=== PATIENT | female | born 1955 | race Caucasian/White ===

== ENCOUNTER 2016-08-10 15:23 | Emergency (ER) | payer OTHER ==
[2016-08-10] MEDS ORDERED: MORPHINE SULFATE 2 MG/1 ML IVP ONE (15:32)
[2016-08-10] MEDS ORDERED: ONDANSETRON 4 MG/2 ML VIAL IVP ONE (15:32)
[2016-08-10] MEDS ORDERED: Sodium Chloride 0.9% 1,000 ML PRIMARY IV ONE (15:32)
--- NOTE | 2016-08-10 15:35 | PDOC ---
Chest Pain HPI - General Chief Complaint: Chest Pain Stated Complaint: CHEST PAIN Date Seen by Provider: 08/10/16 Time Seen by Provider: 15:33 Source: Patient, EMS Exam Limitations: POSITIVE: No limitations Treatment Prior to Arrival: REPORTS: Nitroglycerin, Aspirin Nurse's Notes Reviewed & Considered: Yes EMS Report Reviewed & Considered: Verbal - History of Present Illness Initial Comments: Patient comes in via EMS with chest pain. Approximately 30 minutes prior to presentation here in the emergency department patient developed sharp left sternal chest pain that radiated into her neck and shoulder. In route she received 2 sublingual lungs that reduced her chest pain and additionally gave her 4 baby aspirin. He denies any fever or chills sweats, nausea vomiting or diarrhea, she does have a headache, she has chest pain, shortness of breath. Body Location Affected: REPORTS: Chest Timing: REPORTS: Abrupt, Constant Duration: 1/2 hour Severity: Moderate Context: REPORTS: Rest Quality: REPORTS: "Pain", Sharpness, Stabbing Radiation: REPORTS: Neck (L), Shoulder (L) Associated Symptoms: REPORTS: Shortness of Breath Modifying Factors: improves with: None Reported Similar Symptoms Previously: No Recently seen/treated/hospitalized: No Any Prior Injuries Related to Current Complaint?: No - Patient Home Medications Home Medications: Home Medications Metformin HCl [Metformin Hcl Er] 1 tab PO QD #30 tab 10/31/15 Sertraline HCl 1 tab PO QD #30 tab 10/31/15 Simvastatin 1 tab PO QD #30 tab 10/31/15 Omeprazole 1 cap PO BID #60 cap 04/24/16 Diazepam [Valium] 5 mg PO QHS #10 tab 08/06/16 Ergocalciferol (Vitamin D2) [Vitamin D2] 1 cap PO 2XW #16 cap 08/08/16 - Patient Allergies Allergies/Adverse Reactions: Allergies Allergy/AdvReac Type Severity Reaction Status Date / Time No Known Allergies Allergy Verified 08/10/16 15:42 Past Medical History - heen HEENT History: Denies History Cardiovascular History: Hypertension, Arrhythmia, Hyperlipidemia Respiratory History: Denies History Gastrointestinal History: Denies History Additional Gastrointestinal History: EPIGASTRIC PAIN/ HIDA SCAN DONE ON 03/13 WAS NEGATIVE Genitourinary History: Denies History Endocrine History: Denies History Musculoskeletal History: Back Pain Prosthesis or Implant: No (SCREWS TO LOWER BACK) Neurological History: Denies History Blood Disorders: Other (please comment) Additional Blood Disorders History: JUSTIN [place] SPOTTED FEVER 10 YEARS AGO Psychiatric History: Depression History of Sexually Transmitted Diseases: No Cancer History: Denies History History of MDRO: No History of Other Communicable Diseases: No Alcohol Use: Occasionally Substance Use Type: None Previous Surgical History: Yes Type / Date of Surgery: C SECTION/ COLONOSCOPY/ RIGHT AXILLA BENIGN LUMP REMOVED / TUBAL/ VERTEBRAL FUSION / SPINAL SURGERY FOR SPINAL STENOSIS Anesthesia Reactions: No Malignant Hyperthermia: No Significant Family History: Cancer ROS - Limitations ROS Limitations: No Limitations Constitution: REPORTS: Denies Symptoms Cardiovascular: REPORTS: Chest Pain Respiratory: REPORTS: Shortness Of Breath Neurological: REPORTS: Denies Neuro Symptoms Gastrointestinal: REPORTS: Denies GI Symptoms Endocrine: REPORTS: Denies Symptoms Musculoskeletal: REPORTS: Denies MS Symptoms Genitourinary: REPORTS: Denies Symptoms Eyes: REPORTS: Denies Symptoms ENT: REPORTS: Denies Symptoms Skin: REPORTS: Denies Skin Symptoms Lympathic: REPORTS: Denies Lympathic Symptoms Immunologic: POSITIVE: Denies Symptoms Psychiatric: POSITIVE: Anxiety Chest Pain PE - General Appearance General Appearance: REPORTS: Alert, Cooperative, No Acute Distress, No Evidence of Trauma, Anxious - HEENT HEENT: POSITIVE: Head Inspection Nml, Eyes Inspection Nml, Ears Inspection Nml, Nose Inspection Nml, PERRL, EOMI - Neck Neck: REPORTS: Normal Inspection - Respiratory Respiratory: REPORTS: No Respiratory Distress, Breath Sounds Normal, Chest Non- Tender - Cardiovascular Cardiovascular: REPORTS: Regular Rate and Rhythm, Heart Sounds Normal - Abdomen Abdomen: Soft: (All Quadrants), Normal Bowel Sounds: (All Quadrants), Denies Tenderness: (All Quadrants) - Skin Skin: REPORTS: Intact, Normal For Race, Warm, Dry, No Rash - Extremities Extremity: Non-Tender: (All Extremities), Normal ROM: (All Extremities), Normal Inspection: (All Extremities) - Neurological / Psychological Neurological: POSITIVE: Affect Apporpriate, Oriented X3 Chest Pain Progress - Results Reviewed by me Xrays/CTs/US Reviewed by me: Yes Discussed with Radiologist: Yes Lab Results Reviewed: Yes Lab Results:: Laboratory Results 08/10/16 08/10/16 Range/Units 15:15 17:33 WBC 5.71 (4.8-10.8) 10^3/uL RBC 4.73 (4.20-5.40) 10^6/uL Hgb 14.3 (12.0-16.0) g/dL Hct 43.1 (37.0-47.0) % MCV 91.1 (81-99) FL MCH 30.2 (27-31) PG MCHC 33.2 (33-37) g/dL RDW Std Deviation 42.6 (39-50) fL RDW Coeff of Kelsey 13.1 (11.5-14.5) % Plt Count 191 (140-350) 10*3/uL MPV 11.0 (7.4-12.2) FL D-Dimer < 0.19 (0.00-0.59) mg/L Sodium 137 (135-145) meq/L Potassium 4.2 (3.8-5.2) meq/L Chloride 99 (98-112) meq/L Carbon Dioxide 26 (23-33) meq/L Anion Gap 12 (5-20) BUN 16 (7-22) mg/dL Creatinine 0.6 (0.50-1.20) mg/dL Estimated GFR > 60 (>60 ml/min/1.73m(2)) BUN/Creatinine Ratio 26.66 H (6-20) Glucose 88 (78-110) mg/dL Calculated Osmolality 283.0 (267-292) mOsm/kg Calcium 9.3 (8.7-10.7) mg/dL Magnesium 1.7 (1.6-2.4) mg/dL Total Bilirubin 0.8 (0.3-1.2) mg/dL AST 28 (8-39) IU/L ALT 43 (9-52) IU/L Alkaline Phosphatase 90 (38-126) IU/L Troponin I < 0.012 < 0.012 (< 0.040) ng/mL Total Protein 7.6 (6.1-8.0) g/dL Albumin 4.4 (3.5-4.8) g/dL Globulin 3.2 (2.50-4.10) g/dL Albumin/Globulin Ratio 1.30 (1.3-2.0) mg/g TSH 3.89 (0.2700-4.2000) uIU/mL Free T4 0.82 L (0.93-1.71) ng/dL EKG Interpretation:: POSITIVE: Normal Sinus Rhythm, Abnormal EKG - Patient's Progress Pain Medication Addressed: POSITIVE: Yes Re-Examine Time: 18:03 Status: POSITIVE: Improved MDM / ED Course: Patient brought in via EMS for chest pain. Patient with sharp chest pain radiating to her left neck and shoulder that was relieved with nitroglycerin. She was examined, an IV was established, blood drawn and sent to lab for studies radiological studies were obtained as well as EKG. Findings: EKG per my read shows ST inversion in leads V1 to 3, chest x-ray is unremarkable with no acute cardiopulmonary decompensation. Troponin is normal 2 two hours apart. Assessment: Chest pain with EKG changes with no baseline for comparison, rule out troponins normal. Plan: Keep her appointment for echocardiogram this week. Quality Measure Initiative: CP/AMI: POSITIVE: EKG, ASA Quality Measure Initiative: CAP: POSITIVE: CXR or CT - Consult Counseled: POSITIVE: Patient, Family, RE: Lab Results, RE: Radiology Results, RE : DX, RE: Need for F/U Patient Care Time - Estimated PCT Patient Care Time (In Minutes): 60 Vital Signs - Recent Vital Signs Vital Signs: Vital Signs (Last 8 hours) Pulse 08/10/16 15:33 69 - VS Reviewed Vital Signs Reviewed: Yes Discharge Clinical Impression: Chest pain Discharge Disposition: Discharged to Home Condition: Fair Patient Instructions Given at Discharge: Chest Pain (ED)
--- NOTE | 2016-08-10 15:41 | EKG ---
[address] [place] [address] Measurements Intervals [place] Rate: 69 P: 42 IN: 144 QRS: 27 QRSD: 80 T: 17 QT: 420 QTc: 440 Interpretive Statements SINUS RHYTHM [address] DEVIATION AND MODERATE T-WAVE ABNORMALITY, CONSIDER ANTEROLATERAL ISCHEMIA [-0.1+ mV T WAVE IN V3-V6] Compared to ECG 08/06/2016 15:57:10 No significant changes Electronically Signed On 08-11-16 09:09:42 MST by Donovan Belcher MD [email or web address]
[2016-08-10 15:43] LABS: HEMATOCRIT 43.1 % (37.0-47.0); HEMOGLOBIN 14.3 g/dL (12.0-16.0); MEAN CORPUSCULAR HEMOGLOBIN 30.2 PG (27-31); MEAN CORPUSCULAR HGB CONC 33.2 g/dL (33-37); RDW COEFFICIENT OF VARIATION 13.1 % (11.5-14.5); RED BLOOD COUNT 4.73 10^6/uL (4.20-5.40); WHITE BLOOD COUNT 5.71 10^3/uL (4.8-10.8)
[2016-08-10 15:50] LABS: ASPARTATE AMINO TRANSFERASE 28 IU/L (8-39); BILIRUBIN,TOTAL 0.8 mg/dL (0.3-1.2); BLOOD UREA NITROGEN 16 mg/dL (7-22); BUN/CREATININE RATIO 26.66 (6-20); CALCIUM 9.3 mg/dL (8.7-10.7); CHLORIDE 99 meq/L (98-112); CREATININE 0.6 mg/dL (0.50-1.20); EST GLOMERULAR FILTRATION > 60 (>60 ml/min/1.73m(2)); GLUCOSE 88 mg/dL (78-110); MAGNESIUM 1.7 mg/dL (1.6-2.4); POTASSIUM 4.2 meq/L (3.8-5.2); SODIUM 137 meq/L (135-145); TOTAL PROTEIN 7.6 g/dL (6.1-8.0)
--- NOTE | 2016-08-10 16:00 | DI ---
HISTORY: Chest pain. COMPARISON: 01/23/2016. FINDINGS: Portable chest radiograph, compared to PA/LAT chest dated 01/23/2016. Lungs are adequatel y expanded without evident pneumothorax, pleural effusion, or focal airspace mass or consolidation. The cardiomediastinal silhouette and pulmonary vascularity are likely normal for technique. No acute bony abnormality is seen. IMPRESSION: 1. No acute process identified. For persistent concern, consider PA and lateral chest radiographs.
[2016-08-10 16:09] LABS: FREE T4 (FREE THYROXINE) 0.82 ng/dL (0.93-1.71)
--- NOTE | 2016-08-10 17:23 | EKG ---
[address] [place] [address] Measurements Intervals [place] Rate: 58 P: 39 WI: 138 QRS: 26 QRSD: 78 T: 0 QT: 440 QTc: 437 Interpretive Statements SINUS BRADYCARDIA MODERATE T-WAVE ABNORMALITY, CONSIDER ANTEROLATERAL ISCHEMIA [-0.1+ mV T WAVE IN V3-V6] Compared to ECG 08/10/2016 15:33:21 Sinus rhythm no longer present T-wave abnormality still present Possible ischemia still present Electronically Signed On 08-11-16 09:10:11 MST by Donovan Belcher MD [email or web address]
[2016-08-10 18:03] VITALS: RESP 15; TEMP 97
[2016-08-10] MEDS ORDERED: NITROGLYCERIN 0.4 MG SL TAB (BOTTLE OF 3) SL ONE (18:18)
[2016-08-11] MEDS ORDERED: NITROGLYCERIN 0.4 MG SL TAB (BOTTLE OF 3) SL ONE (00:46)
== END 2016-08-10 18:30 | disposition home or self-care (01) ==
LOC: ER 15:23
DX: R07.89 Other chest pain (principal); R51 Headache; R06.02 Shortness of breath; M54.2 Cervicalgia; M25.512 Pain in left shoulder
CPT/HCPCS: 71010; 80053; 83735; 84439; 84443; 84484; 85027; 85379; 93005; 93010; 99284; J2270; J2405

== ENCOUNTER 2016-11-11 03:15 | Emergency (ER) | payer OTHER ==
[2016-11-11] MEDS ORDERED: NORMAL SALINE 10 ML SYRINGE FLUSH IVP PRN (03:26)
[2016-11-11] MEDS ORDERED: Sodium Chloride 0.9% 1,000 ML PRIMARY IV ONE (03:26)
[2016-11-11] MEDS ORDERED: diphenhydrAMINE 50 MG/1 ML VIAL IVP ONE (03:27)
[2016-11-11 03:48] LABS: BASOPHILS # (AUTO) 0.01 10*3/UL; BASOPHILS % (AUTO) 0.2 % (0-1); EOSINOPHILS # (AUTO) 0.07 10*3/UL; EOSINOPHILS % (AUTO) 1.6 % (0-8); HEMATOCRIT 40.9 % (37.0-47.0); HEMOGLOBIN 13.2 g/dL (12.0-16.0); LYMPHOCYTES # (AUTO) 1.65 10*3/uL; MEAN CORPUSCULAR HEMOGLOBIN 30.4 PG (27-31); MEAN CORPUSCULAR HGB CONC 32.3 g/dL (33-37); MEAN CORPUSCULAR VOLUME 94.2 FL (81-99); MEAN PLATELET VOLUME 10.6 FL (7.4-12.2); MONOCYTES # (AUTO) 0.52 10*3/UL (0.3-0.8); MONOCYTES % (AUTO) 12.1 % (5-15); NEUTROPHILS # (AUTO) 2.06 10*3/UL; NEUTROPHILS % (AUTO) 47.8 % (50-80); RED BLOOD COUNT 4.34 10^6/uL (4.20-5.40)
[2016-11-11 03:49] LABS: PLATELET MORPHOLOGY COMMENT NORMAL MORPHOLOGY (NORM); RBC MORPHOLOGY COMMENT NORMAL MORPHOLOGY (NORM); WBC MORPHOLOGY COMMENT NORMAL MORPHOLOGY (NORM)
[2016-11-11 03:55] LABS: BLOOD UREA NITROGEN 12 mg/dL (7-22); EST GLOMERULAR FILTRATION > 60 (>60 ml/min/1.73m(2)); SERUM ALBUMIN 4.3 g/dL (3.5-4.8)
[2016-11-11 04:08] VITALS: RESP 20; TEMP 96.2
[2016-11-11 05:03] LABS: BILIRUBIN,URINE NEGATIVE (NEG); COLOR,URINE YELLOW; GLUCOSE, URINE (UA) NEGATIVE (NEG); NITRATE,URINE NEGATIVE (NEG); OCCULT BLOOD,URINE NEGATIVE (NEG); PROTEIN,URINE NEGATIVE (NEG); UROBILINOGEN,URINE 0.2 EU/dL (0.2)
[2016-11-11 05:04] LABS: CLARITY,URINE CLEAR (CLEAR); URINE SAMPLE TYPE CLEAN CATCH URINE
--- NOTE | 2016-11-11 05:25 | PDOC ---
Neuro Symptoms / Deficit HPI - General Chief Complaint: Neurological Complaints Stated Complaint: Left sided weakness/numbness Date Seen by Provider: 11/11/16 Time Seen by Provider: 03:15 - History of Present Illness Initial Comments: Patient is a 60-year-old woman who is brought to the emergency department by her with complaints of numbness and tingling in her left arm some swelling above her left eye and abnormal behavior. Patient is obviously significantly intoxicated and unable to communicate effectively. She states that she stopped drinking 6 hours ago and hasn't had hardly anything to drink clearly is at substantially more. She is complaining of multiple vague neurologic complaints. - Patient Home Medications Home Medications: Home Medications Metformin HCl [Metformin Hcl Er] 1 tab PO QD #30 tab 10/31/15 Omeprazole 1 cap PO BID #60 cap 04/24/16 Levothyroxine Sodium 1 tab PO DAILY #30 tab 10/08/16 Lisinopril 1 tab PO DAILY #30 tab 10/08/16 Phentermine HCl 1.5 tab PO QD #45 tab 10/08/16 Sertraline HCl 1.5 tab PO QD #45 tab 10/08/16 Simvastatin 1 tab PO QD #30 tab 11/03/16 Chrom Ailin/Brindal Jennings [Garcinia Cambogia Tablet] 2 tab PO DAILY 11/11/16 - Patient Allergies Allergies/Adverse Reactions: Allergies Allergy/AdvReac Type Severity Reaction Status Date / Time No Known Allergies Allergy Verified 11/11/16 03:48 Past Medical History - heen HEENT History: Denies History Cardiovascular History: Hypertension, Arrhythmia, Hyperlipidemia Respiratory History: Denies History Gastrointestinal History: Denies History Additional Gastrointestinal History: EPIGASTRIC PAIN/ HIDA SCAN DONE ON 03/13 WAS NEGATIVE Genitourinary History: Denies History Endocrine History: Denies History Additional Endocrine History: LOW FUNCTIONING THYROID Musculoskeletal History: Back Pain Prosthesis or Implant: No (SCREWS TO LOWER BACK) Neurological History: Denies History Blood Disorders: Other (please comment) Additional Blood Disorders History: JUSTIN [place] SPOTTED FEVER 10 YEARS AGO Psychiatric History: Depression History of Sexually Transmitted Diseases: No Female Reproductive History: Denies History Obstetrical History: Denies History Cancer History: Denies History In Past Year Been Physically Harmed or Verbally Threatened: No History of MDRO: No History of Other Communicable Diseases: No Tobacco Use: Never Smoker Alcohol Use: Other Type of alcohol normally used: Wine How much alcohol do you normally drink a day?: 3-4 glasses of wine daily and tonight last drink 2100 Substance Use Type: None Previous Surgical History: Yes Type / Date of Surgery: C SECTION/ COLONOSCOPY/ RIGHT AXILLA BENIGN LUMP REMOVED / TUBAL/ VERTEBRAL FUSION / SPINAL SURGERY FOR SPINAL STENOSIS Anesthesia Reactions: No Malignant Hyperthermia: No Significant Family History: Cancer Past Medical History Reviewed: Reviewed - No Changes ROS - Limitations ROS Limitations: No Limitations Constitution: REPORTS: Denies Symptoms Cardiovascular: REPORTS: Denies Cardiac Symptoms Respiratory: REPORTS: Denies Resp Symptoms Neuro Symptoms / Deficit Exam - General Appearance General Appearance: POSITIVE: No Acute Distress, Alert - HEENT HEENT: POSITIVE: Head Inspection Nml, Eyes Inspection Nml - Neuro / Psych Higher Functions: POSITIVE: Oriented to Person, Oriented to Place, Other ( Appears intoxicated) Cranial Nerves: POSITIVE: Normal As Tested, No Evidence of Acute CVA - Respiratory Respiratory: POSITIVE: No Respiratory Distress, Breath Sounds Normal - Cardiovascular Cardiovascular: POSITIVE: Regular Rate & Rhythm, Heart Sounds Normal - Abdomen Abdomen: Soft: (All Quadrants), Normal Bowel Sounds: (All Quadrants), Denies Tenderness: (All Quadrants) - Skin Skin: POSITIVE: Intact, Normal For Race, Warm Neuro Symptom/Deficit Progress - Results Reviewed by me Lab Results Reviewed: Yes Lab Results:: Laboratory Results 11/11/16 11/11/16 Range/Units 03:35 04:25 WBC 4.31 L (4.8-10.8) 10^3/uL RBC 4.34 (4.20-5.40) 10^6/uL Hgb 13.2 (12.0-16.0) g/dL Hct 40.9 (37.0-47.0) % MCV 94.2 (81-99) FL MCH 30.4 (27-31) PG MCHC 32.3 L (33-37) g/dL RDW Std Deviation 46.6 (39-50) fL RDW Coeff of Kelsey 14.0 (11.5-14.5) % Plt Count 175 (140-350) 10*3/uL MPV 10.6 (7.4-12.2) FL Immature Gran % (Auto) 0 (0-5) % Neut % (Auto) 47.8 L (50-80) % Lymph % (Auto) 38.3 (10-50) % [facility] % (Auto) 12.1 (5-15) % Eos % (Auto) 1.6 (0-8) % Baso % (Auto) 0.2 (0-1) % Immature Gran # (Auto) 0 10*3/UL Neut # (Auto) 2.06 10*3/UL Lymph # (Auto) 1.65 10*3/uL [facility] # (Auto) 0.52 (0.3-0.8) 10*3/UL Eos # (Auto) 0.07 10*3/UL Baso # (Auto) 0.01 10*3/UL WBC Morphology Comment Normal morphology (NORM) Plt Morphology Comment Normal morphology (NORM) RBC Morph Comment Normal morphology (NORM) Sodium 143 (135-145) meq/L Potassium 4.0 (3.8-5.2) meq/L Chloride 106 (98-112) meq/L Carbon Dioxide 25 (23-33) meq/L Anion Gap 12 (5-20) BUN 12 (7-22) mg/dL Creatinine 0.6 (0.50-1.20) mg/dL Estimated GFR > 60 (>60 ml/min/1.73m(2)) BUN/Creatinine Ratio 20.00 (6-20) Glucose 90 (78-110) mg/dL Calculated Osmolality 295.0 H (267-292) mOsm/kg Calcium 9.0 (8.7-10.7) mg/dL Total Bilirubin 0.3 (0.3-1.2) mg/dL AST 20 (8-39) IU/L ALT 26 (9-52) IU/L Alkaline Phosphatase 76 (38-126) IU/L Total Protein 7.4 (6.1-8.0) g/dL Albumin 4.3 (3.5-4.8) g/dL Globulin 3.1 (2.50-4.10) g/dL Albumin/Globulin Ratio 1.30 (1.3-2.0) mg/g Ur Collection Type Clean catch urine Urine Color Yellow Urine Clarity Clear (CLEAR) Urine pH 5.0 (5.0-8.5) Ur Specific [place] 1.004 (1.005-1.030) Urine Protein Negative (NEG) mg/dl Urine Glucose (UA) Negative (NEG) mg/dL Urine Ketones Negative (NEG) Urine Occult Blood Negative (NEG) Urine Nitrate Negative (NEG) Urine Bilirubin Negative (NEG) Urine Urobilinogen 0.2 (0.2) EU/dL Ur Leukocyte Esterase Negative (NEG) Ur Culture Indicated? Culture not set Serum Alcohol 237 H (0-10) mg/dL - Patient's Progress MDM / ED Course: Patient was monitored for a couple hours in the emergency department she came back with a blood alcohol level III times the legal limit. Otherwise after she got a little bit arrest she is back close to normal. They ambulated her and she ambulated independently without assistance. She is showing no signs of neurologic symptoms at this time and is eager to go home. I think this is fine. When she first came in I didn't think she might of had a little bit of angioedema above the left eye I have told her to consider holding her lisinopril until she talks to her primary care provider she also is taking a new herbal medication this week and I am unfamiliar with this particular herbal medication but have asked him to hold out until a visit with her primary care provider about it as well. Ultimately I think that almost all of her symptoms can be chalked up to alcohol intoxication especially in the setting of using phentermine and sertraline and potentially this new herbal medication while being heavily intoxicated. Patient Care Time - Estimated PCT Patient Care Time (In Minutes): 40 Vital Signs - Recent Vital Signs Vital Signs: Vital Signs (Last 8 hours) Temp Pulse Resp BP Pulse Ox 11/11/16 03:15 96.2 F L 79 20 147/92 95 - VS Reviewed Vital Signs Reviewed: Yes Discharge Clinical Impression: Intoxication Discharge Disposition: Discharged to Home Condition: Stable Patient Instructions Given at Discharge: Alcohol Intoxication (ED), Angioedema (ED) Additional Instructions: All of your primary care provider in the next couple of days to discuss your use of lisinopril and the swelling he had a rear I Avoid taking alcohol as long as you are taking phentermine and sertraline. Return to the emergency department if you have any increase in symptoms or other concerns. Follow Up With: LUIS MANUEL VALLE [Primary Care Provider] -
== END 2016-11-11 05:25 | disposition home or self-care (01) ==
LOC: ER 03:15
DX: F10.129 Alcohol abuse with intoxication, unspecified (principal); R20.2 Paresthesia of skin
CPT/HCPCS: 80053; 80320; 81003; 85025; 96361; 96374; 99283 ×2; J1200; J7030

== ENCOUNTER → 2016-12-04 | Outpatient (CLI) | payer OTHER | LOC: MOB LAB 16:06 | PROVIDERS: ATTEND Family Medicine | DX: R94.6 Abnormal results of thyroid function studies (principal) | CPT/HCPCS: 36415; 84439; 84443 ==

== ENCOUNTER → 2017-01-27 | Outpatient (CLI) | payer OTHER ==
[2017-01-27 10:58] LABS: BLOOD UREA NITROGEN 12 mg/dL (7-22); BUN/CREATININE RATIO 17.14 (6-20); CALCIUM 9.6 mg/dL (8.7-10.7); EST GLOMERULAR FILTRATION > 60 (>60 ml/min/1.73m(2)); SERUM ALBUMIN 4.6 g/dL (3.5-4.8)
[2017-01-27 11:04] LABS: BASOPHILS # (AUTO) 0.01 10*3/UL; BASOPHILS % (AUTO) 0.2 % (0-1); EOSINOPHILS # (AUTO) 0.09 10*3/UL; EOSINOPHILS % (AUTO) 1.8 % (0-8); HEMATOCRIT 42.6 % (37.0-47.0); HEMOGLOBIN 13.3 g/dL (12.0-16.0); LYMPHOCYTES # (AUTO) 1.15 10*3/uL; MEAN CORPUSCULAR HEMOGLOBIN 30.1 PG (27-31); MEAN CORPUSCULAR HGB CONC 31.2 g/dL (33-37); MEAN CORPUSCULAR VOLUME 96.4 FL (81-99); MEAN PLATELET VOLUME 11.3 FL (7.4-12.2); MONOCYTES # (AUTO) 0.54 10*3/UL (0.3-0.8); NEUTROPHILS % (AUTO) 63.3 % (50-80); RED BLOOD COUNT 4.42 10^6/uL (4.20-5.40)
[2017-01-27 11:13] LABS: PLATELET MORPHOLOGY COMMENT NORMAL MORPHOLOGY (NORM); RBC MORPHOLOGY COMMENT NORMAL MORPHOLOGY (NORM); WBC MORPHOLOGY COMMENT NORMAL MORPHOLOGY (NORM)
[2017-01-27 11:15] LABS: FREE T4 (FREE THYROXINE) 0.91 ng/dL (0.93-1.71)
[2017-01-27 11:28] LABS: HEMOGLOBIN A1C 5.25 % (4.2-6.0)
[2017-01-27 12:17] LABS: CHOL/HDL RATIO 2.31 RATIO (0-4.0); LDL CHOLESTEROL,CALCULATED 118.6 mg/dL
== END ==
LOC: MOB LAB 09:28
PROVIDERS: ATTEND Family Medicine
DX: E11.9 Type 2 diabetes mellitus without complications (principal); I10 Essential (primary) hypertension; R10.13 Epigastric pain; E78.00 Pure hypercholesterolemia, unspecified; K21.9 Gastro-esophageal reflux disease without esophagitis; R63.5 Abnormal weight gain; F32.9 Major depressive disorder, single episode, unspecified
CPT/HCPCS: 36415; 80053; 80061; 83036; 84439; 84443; 85025

== ENCOUNTER → 2017-03-03 | Outpatient (CLI) | payer OTHER ==
[2017-03-03 12:37] LABS: BLOOD UREA NITROGEN 13 mg/dL (7-22); BUN/CREATININE RATIO 21.66 (6-20); CALCIUM 9.7 mg/dL (8.7-10.7); EST GLOMERULAR FILTRATION > 60 (>60 ml/min/1.73m(2))
== END ==
LOC: MOB LAB 10:36
PROVIDERS: ATTEND Physician Assistant
DX: R10.12 Left upper quadrant pain (principal); R10.11 Right upper quadrant pain; R10.13 Epigastric pain
CPT/HCPCS: 36415; 80048

== ENCOUNTER → 2017-03-05 | Outpatient (CLI) | payer OTHER ==
--- NOTE | 2017-03-05 11:47 | DI ---
CT ABD W/CN AND PELVIS W/CN,03/05/2017 9:05 AM: Clinical History: Epigastric pain Previous Exam: March 12, 2016 Findings: Multiple helically acquired CT images are obtained through the abdomen and pelvis following intraveno us administration of 75 cc of Isovue 300, and demonstrate a small fat-containing umbilical hernia. Po stsurgical changes are seen consistent with unilateral transpedicular fixation of the L4/5 interverte bral disc space. The urinary bladder is unremarkable. The uterus and ovaries are unremarkable. There is no mesenteric or retroperitoneal lymphadenopathy. The liver, spleen, gallbladder and pancreas are unremarkable. Lung bases are clear. Skeletal structures demonstrate degenerative changes at L4/5 as above. The stomach is decompressed and therefore not well evaluated. The duodenum is normal and small bowel loops appear grossly normal. There is some excessive mobility of the cecum with the ileocecal valve n oted superior medially within the right hypogastric region. Impression: No acute intra-abdominal pathology.
== END ==
LOC: CT 08:42
PROVIDERS: ATTEND Family Medicine
DX: R10.13 Epigastric pain (principal); R93.5 Abnormal findings on diagnostic imaging of other abdominal regions, including retroperitoneum
CPT/HCPCS: 74177

== ENCOUNTER → 2017-03-06 | Outpatient (CLI) | payer OTHER ==
--- NOTE | 2017-03-06 11:19 | DI ---
MRI LUMBAR SPINE W/O CN,03/06/2017 9:58 AM: Clinical History: Low back pain radiating to right leg. Previous Exam: None at this facility. Findings: Multiplanar MR images are obtained through the lumbar spine without contrast. There is grade 1 anterolisthesis of L4 on L5. There is transpedicular fixation of L4/5 on the left on ly. The spinal cord descends normally with normal course and caliber and a normal conus at the T12 level. There are intraosseous lipomas noted within multiple vertebral levels. The paravertebral soft tissues are unremarkable. Major vascular flow voids are unremarkable. Individual intervertebral disc spaces: L1/2: There is a small broad-based disc bulge without significant stenosis. L2/C3: No significant stenosis. L3/4: There is disc desiccation, annular fissuring and a broad-based disc bulge with facet and ligame ntum flavum hypertrophy contributing to mild central canal stenosis with moderate to severe left and no significant right neural foraminal narrowing. L4/5: There is grade 1 anterolisthesis of L4 on L5 with disc desiccation and annular fissuring. There is bilateral L5 pars defects and left-sided transpedicular fixation of L4/5. This contributes to mod erate left and mild right neuroforaminal narrowing. At L5/S1: There is no significant central canal nor neural foraminal narrowing. Impression: L1/2: There is a small broad-based disc bulge without significant stenosis. L2/C3: No significant stenosis. L3/4: There is disc desiccation, annular fissuring and a broad-based disc bulge with facet and ligame ntum flavum hypertrophy contributing to mild central canal stenosis with moderate to severe left and no significant right neural foraminal narrowing. L4/5: There is grade 1 anterolisthesis of L4 on L5 with disc desiccation and annular fissuring. There is bilateral L5 pars defects and left-sided transpedicular fixation of L4/5. This contributes to mod erate left and mild right neuroforaminal narrowing. At L5/S1: There is no significant central canal nor neural foraminal narrowing.
== END ==
LOC: MRI 09:55
PROVIDERS: ATTEND Physician Assistant
DX: M54.5 Low back pain (principal); M47.816 Spondylosis without myelopathy or radiculopathy, lumbar region; M51.16 Intervertebral disc disorders with radiculopathy, lumbar region
CPT/HCPCS: 36415; 72148; 82565; 84520

== ENCOUNTER → 2017-03-09 | Outpatient (CLI) | payer OTHER ==
--- NOTE | 2017-03-10 06:31 | DI ---
XR L-SPINE MIN 4 VW,03/09/2017 9:30 AM: Clinical History: Right low back pain of unspecified chronicity Previous Exam: None at this facility. Findings: AP and lateral views of the lumbar spine are obtained, and demonstrate mild dextroscoliosis of the issa mbar spine centered at the L3/4 level. Postsurgical changes are seen at L4/5 consistent with transped icular fixation. Flexion and extension views of the lumbar spine demonstrate no evidence of instability. There is grade 1 and the of L4 on L5. There is also interbody fusion noted. A nonobstructive bowel gas pattern is seen. There are no pathologic calcifications identified. Impression: Grade 1 anterolisthesis of L4 on L5 There is interbody fusion at L4/5 as well
== END ==
LOC: ORTHO 09:41
PROVIDERS: ATTEND Orthopaedic Surgery
DX: M54.41 Lumbago with sciatica, right side (principal); Z98.1 Arthrodesis status
CPT/HCPCS: 72110

== ENCOUNTER → 2017-03-17 | Outpatient (CLI) | payer OTHER ==
--- NOTE | 2017-03-17 09:20 | DI ---
CT LUMBAR SPINE W/O CONTRAST,03/17/2017 8:04 AM: Clinical History: Back pain Previous Exam: None at this facility. Findings: Multiple helically acquired CT images are obtained through the lumbar spine without contrast. Sagitta l and coronal reconstructions are obtained, and demonstrate anatomic alignment without fractures. Slava tebral body height is preserved. There is grade 1 anterolisthesis of L4 on L5. There is transpedicula r fixation of L4/5 and patient is status post bilateral laminectomies at L4. There is no significant mineralization of the interbody fusion at L4/5. The surrounding paravertebral soft tissues are unremarkable. The appendix is normal. Diffuse degenera tive changes of the spine are seen. A few peripheral vascular calcifications are noted. Impression: 1. Grade 1 anterolisthesis of L4 on L5 with left-sided transpedicular fusion and interbody fusion wit hout any significant demineralization of the interbody fusion at this time.
== END ==
LOC: CT 07:59
PROVIDERS: ATTEND Neurological Surgery
DX: M47.26 Other spondylosis with radiculopathy, lumbar region (principal); Z98.1 Arthrodesis status
CPT/HCPCS: 72131